=== PATIENT | male | born 1960 | race Caucasian/White ===

== ENCOUNTER 2017-09-17 02:09 | Observation (INO) | payer SELFPAY ==
[2017-09-17] MEDS ORDERED: ASPIRIN 81 MG TABLET, CHEWABLE PO ONE (02:12)
--- NOTE | 2017-09-17 02:20 | ER Document Report ---
ED General - General Mode of Arrival: Medic Information source: Patient <TOM GARCIA - Last Filed: 09/17/17 03:34> <TAL AGUIRRE - Last Filed: 09/17/17 06:16> - General Stated Complaint: CHEST PAIN Time Seen by Provider: 09/17/17 02:12 Notes: Patient is a 56 year old male with a history of MN presents to the emergency department via EMS complaining of chest pain onset 1 hour prior to arrival. Patient states he was woken from his sleep due to his chest pain. He further states that he believes he is having a heart attack because his symptoms are similar to his previous MN 15 years ago. He states his pain starts in his chest and radiates down both of his arms with a severity of 2/5. Patient states he has had one drink prior to arrival to the emergency department. Patient denies nausea, vomiting, shortness of breath or headaches. EMS gave Aspirin and Nitroglycerin on the way to the emergency department. Patient states these medications did not relieve his pain. (JOSETOM) - Related Data Allergies/Adverse Reactions: No Known Allergies Allergy (Unverified 09/17/17 03:28) Past Medical History - General Information source: Patient, Emergency Med Personnel - Social History Smoking Status: Current Every Day Smoker Cigarette use (# per day): Yes Frequency of alcohol use: Rare Drug Abuse: Marijuana Family History: Other - [place] <TOM GARCIA - Last Filed: 09/17/17 03:34> Review of Systems - Review of Systems Constitutional: No symptoms reported EENT: No symptoms reported Cardiovascular: See HPI, Chest pain Respiratory: No symptoms reported Gastrointestinal: No symptoms reported Genitourinary: No symptoms reported Male Genitourinary: No symptoms reported Musculoskeletal: See HPI Skin: No symptoms reported Hematologic/Lymphatic: No symptoms reported Neurological/Psychological: No symptoms reported -: Yes All other systems reviewed and negative <TOM GARCIA - Last Filed: 09/17/17 03:34> Physical Exam <JOSE,OLIVEWES - Last Filed: 09/17/17 03:34> <TAL AGUIRRE - Last Filed: 09/17/17 06:16> - Vital signs Vitals: Pulse Ox 96 09/17/17 02:12 - Notes Notes: GENERAL: Alert, interacts well. No acute distress. HEAD: Normocephalic, atraumatic. EYES: Pupils equal, round, and reactive to light. Extraocular movements intact. ENT: Oral mucosa moist, tongue midline. NECK: Full range of motion. Supple. Trachea midline. LUNGS: Clear to auscultation bilaterally, no wheezes, rales, or rhonchi. No respiratory distress. HEART: Regular rate and rhythm. No murmurs, gallops, or rubs. ABDOMEN: Soft, non-tender. Non-distended. Bowel sounds present in all 4 quadrants. EXTREMITIES: Moves all 4 extremities spontaneously. No edema, radial, and dorsalis pedis pulses 2/4 bilaterally. No cyanosis. NEUROLOGICAL: Alert and oriented x3. Normal speech. PSYCH: Normal affect, normal mood. SKIN: Warm, dry, and normal turgor. No rashes or lesions noted. (TOM GARCIA) Course - Laboratory Result Diagrams: 09/17/17 02:14 09/17/17 02:14 <TOM GARCIA - Last Filed: 09/17/17 03:34> - Laboratory Result Diagrams: 09/17/17 02:14 09/17/17 02:14 <TAL AGUIRRE - Last Filed: 09/17/17 06:16> - Re-evaluation Re-evalutation: 09/17/17 03:24 CBC shows mild leukocytosis 11.8, CMP grossly unremarkable, cardiac enzymes initially negative with a troponin of 0.015, EKG is nonischemic 2, chest x-ray does not show any acute process per my interpretation but I am awaiting radiology confirmation. Patient continues to have intermittent left elbow pain but no chest pain. Patient will have nitroglycerin paste placed on the chest, Lovenox will be started and patient will be placed on Dr. Dobson's service for observation. (TAL AGUIRRE) - Vital Signs Vital signs: Temp Pulse Resp BP Pulse Ox 96 09/17/17 02:12 - Laboratory Laboratory results interpreted by me: 09/17/17 09/17/17 02:14 02:14 WBC 11.8 H Glucose 133 H Total Bilirubin 0.1 L - EKG Interpretation by Me Additional EKG results interpreted by me: 09/17/17 03:25 Initial EKG shows sinus rhythm rate of 69 normal axis, normal pulse, no ST segment elevations or depressions, there are biphasic T waves noted in aVL and lead III per my interpretation. Repeat EKG shows sinus rhythm at a rate of 64, normal axis, normal intervals, no ST segment elevations or depressions, there are biphasic T waves in V3 and now newly biphasic T waves in V2, continued biphasic T waves in aVL, again no evidence of a STEMI per my interpretation. (TAL AGUIRRE) Discharge <TOM GARCIA - Last Filed: 09/17/17 03:34> - Discharge Admitting Provider: Hospitalist - [facility] Admitted: Telemetry <TAL AGUIRRE - Last Filed: 09/17/17 06:16> - Discharge Clinical Impression: Chest pain, rule out acute myocardial infarction Condition: Fair Disposition: ADMITTED OBSERVATION Scribe Attestation: 09/17/17 06:16 I personally performed the services described in the documentation, reviewed and edited the documentation which was dictated to the scribe in my presence, and it accurately records my words and actions. (TAL AGUIRRE) Scribe Documentation - Scribe Written by Scribe:: Cecilio Hernandez, 09/17/2017 02:42 acting as scribe for :: Bing <TOM GARCIA - Last Filed: 09/17/17 03:34>
[2017-09-17 02:25] LABS: ABSOLUTE BASOPHILS # (AUTO) 0.1 10^3/uL (0.0-0.2); ABSOLUTE EOSINOPHILS # (AUTO) 0.1 10^3/uL (0.0-0.6); ABSOLUTE LYMPHOCYTES (AUTO) 3.3 10^3/uL (0.5-4.7); ABSOLUTE MONOCYTES (AUTO) 0.9 10^3/uL (0.1-1.4); ABSOLUTE NEUT (AUTO) 7.4 10^3/uL (1.7-8.2); EOSINOPHILS % (AUTO) 0.9 % (0-6); HEMATOCRIT 43.7 % (37.9-51.0); HEMOGLOBIN 14.9 g/dL (13.5-17.0); LYMPHOCYTES % (AUTO) 27.9 % (13-45); MEAN CORPUSCULAR HEMOGLOBIN 30.5 pg (27.0-33.4); MEAN CORPUSCULAR HGB CONC 34.1 g/dL (32.0-36.0); MEAN CORPUSCULAR VOLUME 89 fl (80-97); MONOCYTES % (AUTO) 7.5 % (3-13); PLATELET COUNT 240 10^3/uL (150-450); RED BLOOD COUNT 4.88 10^6/uL (4.35-5.55); RED CELL DISTRIBUTION WIDTH 13.9 % (11.5-14.0); SEGMENTED NEUTROPHILS % (AUTO) 62.7 % (42-78); TOTAL CELLS COUNTED % (AUTO) 100 %; WHITE BLOOD COUNT 11.8 10^3/uL (4.0-10.5)
[2017-09-17 02:36] LABS: ALANINE AMINOTRANSFERASE 26 U/L (21-72); ALKALINE PHOSPHATASE 75 U/L (38-126); ANION GAP 12 (5-19); ASPARTATE AMINO TRANSFERASE 18 U/L (17-59); BILIRUBIN,DIRECT 0.1 mg/dL (0.0-0.4); BILIRUBIN,TOTAL 0.1 mg/dL (0.2-1.3); BLOOD UREA NITROGEN 15 mg/dL (7-20); CALCIUM 9.2 mg/dL (8.4-10.2); CARBON DIOXIDE 25 mmol/L (22-30); CHLORIDE 104 mmol/L (98-107); CREATINE KINASE 59 U/L (55-170); GLUCOSE 133 mg/dL (75-110); POTASSIUM 4.5 mmol/L (3.6-5.0); SODIUM 140.6 mmol/L (137-145); TOTAL PROTEIN 6.8 g/dL (6.3-8.2)
[2017-09-17 02:47] LABS: CREATINE KINASE MB 0.5 ng/mL (<4.55); TROPONIN I 0.015 ng/mL
[2017-09-17] MEDS ORDERED: NITROGLYCERIN 2% OINTMENT 1 GM PACKET TP ONE (03:22)
[2017-09-17] MEDS ORDERED: ENOXAPARIN SODIUM INJ 80 MG/0.8 ML DISP.SYRIN SUBCUT ONE (03:22)
[2017-09-17] MEDS ORDERED: ONDANSETRON HCL INJ/PF 4 MG/2 ML SDV IV PRN (03:42)
[2017-09-17] MEDS ORDERED: OXYCODONE-ACETAMINOPHEN 5-325 MG TABLET PO PRN (03:42)
--- NOTE | 2017-09-17 03:43 | RADIOLOGY REPORT (SQ) ---
EXAM DESCRIPTION: Single view of the chest CLINICAL HISTORY: chest pain COMPARISON: None. FINDINGS: Single frontal view of the chest. The cardiomediastinal silhouette has normal size and contour. No consolidation, pneumothorax, or pleural effusion. Left apical bulla. Leads overlie the chest. No displaced rib fractures identified. Upper abdominal soft tissues are unremarkable. IMPRESSION: 1. No acute pulmonary process identified.
--- NOTE | 2017-09-17 03:53 | PDOC H&P ---
History of Present Illness History of Present Illness: NEREIDA GUZMAN is a 56 year old male patient presents with chief complaint of chest pain. Patient reports that he woke up at about 12:30 AM this morning with chest pain described as pressure-like localized to his precordium radiating to both hands. The chest pain is not reproducible and is not associated with deep breathing. Patient denied fever, cough, palpitation, diaphoresis, nausea, vomiting or diarrhea. He does not have any urinary complaints no headache or dizziness. Of note patient had a heart attack 15 years ago and he had PCI and stent placement. Patient takes only aspirin nausea or medication. He denies also other chronic illness. His father of heart attack at the age of 67. Past Medical History Cardiac Medical History: Reports: Coronary Artery Disease, Myocardial Infarction Past Surgical History Past Surgical History: Reports: Cardiac Catheterization - stents Social History Smoking Status: Current Every Day Smoker - Advance Directive Resuscitation Status: Full Code Family History Family History: Other - MS Parental Family History Reviewed: Yes Children Family History Reviewed: Yes Sibling(s) Family History Reviewed.: Yes Medication/Allergy Allergies/Adverse Reactions: No Known Allergies Allergy (Unverified 09/17/17 03:28) Review of Systems Cardiovascular: PRESENT: as per HPI Respiratory: PRESENT: as per HPI Gastrointestinal: PRESENT: as per HPI Neurological: PRESENT: as per HPI Psychiatric: PRESENT: as per HPI Physical Exam Vital Signs: Temp Pulse Resp BP Pulse Ox 96 09/17/17 02:12 General appearance: PRESENT: no acute distress Head exam: PRESENT: atraumatic, normocephalic Respiratory exam: PRESENT: clear to auscultation james. ABSENT: rales, rhonchi, wheezes Cardiovascular exam: PRESENT: RRR. ABSENT: diastolic murmur, rubs, systolic murmur GI/Abdominal exam: PRESENT: normal bowel sounds, soft. ABSENT: distended, guarding, mass, organolmegaly, rebound, tenderness Musculoskeletal exam: ABSENT: ambulatory, deformity, dislocation, full ROM, normal inspection, tenderness, other Neurological exam: PRESENT: alert, awake, oriented to person, oriented to place , oriented to time, oriented to situation, CN II-XII grossly intact. ABSENT: motor sensory deficit Results Laboratory Results: 09/17/17 02:14 09/17/17 02:14 09/17/17 09/17/17 02:14 02:14 WBC 11.8 H RBC 4.88 Hgb 14.9 Hct 43.7 MCV 89 MCH 30.5 MCHC 34.1 RDW 13.9 Plt Count 240 Seg Neutrophils % 62.7 Lymphocytes % 27.9 Monocytes % 7.5 Eosinophils % 0.9 Basophils % 1.0 Absolute Neutrophils 7.4 Absolute Lymphocytes 3.3 Absolute Monocytes 0.9 Absolute Eosinophils 0.1 Absolute Basophils 0.1 Sodium 140.6 Potassium 4.5 Chloride 104 Carbon Dioxide 25 Anion Gap 12 BUN 15 Creatinine 0.76 Est GFR ( Amer) > 60 Est GFR (Non-Af Amer) > 60 Glucose 133 H Calcium 9.2 Total Bilirubin 0.1 L AST 18 ALT 26 Alkaline Phosphatase 75 Total Protein 6.8 Albumin 4.0 09/17/17 09/17/17 02:14 02:14 Creatine Kinase 59 CK-MB (CK-2) 0.50 Troponin I 0.015 Impressions: Chest X-Ray 09/17/17 02:12 IMPRESSION: 1. No acute pulmonary process identified. Assessment & Plan - Diagnosis (1) Chest pain, rule out acute myocardial infarction Is this a current diagnosis for this admission?: Yes Plan: We will cycle his cardiac enzymes and exercise cardiac stress test in the morning. Patient takes only aspirin and I would like for him Coreg and lisinopril. - Time Critical Time spent with patient: 25-34 minutes
[2017-09-17] MEDS ORDERED: CARVEDILOL 3.125 MG TABLET PO ONE (04:00)
[2017-09-17] MEDS ORDERED: LISINOPRIL 5 MG TABLET PO SCH (04:00)
[2017-09-17] MEDS ORDERED: LANSOPRAZOLE 30 MG TAB.RAP.DR PO SCH (06:00)
[2017-09-17] MEDS: ACETAMINOPHEN 325 MG TABLET PO PRN ×2 (06:22→13:50)
[2017-09-17] MEDS ORDERED: LISINOPRIL 5 MG TABLET PO ONE ×2 (06:45→10:45)
--- NOTE | 2017-09-17 06:53 | EKG REPORT ---
SEVERITY:- ABNORMAL ECG - SINUS RHYTHM ABNRM R PROG, CONSIDER ASMI OR LEAD PLACEMENT BIPHASIC T WAVES ANTERIO LEADS, CLINICAL CORRRELATION NEEDED. : Confirmed by: Pierce Dobbs MD 17-Sep-2017 06:52:53
--- NOTE | 2017-09-17 06:54 | EKG REPORT ---
SEVERITY:- ABNORMAL ECG - SINUS RHYTHM BIPHASIC T WAVES ANTERIO LEADS, CLINICAL CORRRELATION NEEDED. : Confirmed by: Pierce Dobbs MD 17-Sep-2017 06:53:34
[2017-09-17 07:00] LABS: CHOLESTEROL 197.24 mg/dL (0-200); TRIGLYCERIDES 115 mg/dL (<150)
[2017-09-17 07:11] LABS: DIRECT LDL 147 mg/dL (<100)
[2017-09-17] MEDS ORDERED: ASPIRIN 325 MG TABLET, ENT COATED PO SCH (10:00)
[2017-09-17] MEDS ORDERED: ENOXAPARIN SODIUM INJ 40 MG/0.4 ML DISP.SYRIN SUBCUT SCH (10:00)
[2017-09-17] MEDS ORDERED: ATORVASTATIN CALCIUM 40 MG TABLET PO ONE (10:45)
--- NOTE | 2017-09-17 12:56 | EKG REPORT ---
SEVERITY:- ABNORMAL ECG - SINUS RHYTHM NONSPECIFIC T INVERSION ANTERIOR LEADS, CLINICAL CORRELATION NEEDED. : Confirmed by: Pierce Dobbs MD 17-Sep-2017 12:55:44
[2017-09-17] MEDS: NITROGLYCERIN 2% OINTMENT 1 GM PACKET TP SCH ×2 (13:45→18:33)
--- NOTE | 2017-09-17 14:04 | CONSULTATION REPORT E ---
Consultation Report NAME: NEREIDA GUZMAN : 1960 AGE: 56Y DATE: 09/17/2017 315 A TO: TASH MILLER M.D. FROM: Elida NORMAN, Requesting Physician REASON FOR CONSULTATION: The patient had chest pressure, abnormal EKG, and elevated troponin I consistent with a non-ST elevation DC. HISTORY: The patient is a pleasant 56-year-old male with known prior history of coronary artery disease, old myocardial infarction, who states he was doing well until he woke up this morning from sleep around 12:30 a.m. with significant chest pressure with radiation to both arms. The chest pressure did increase with exertion, but there was no shortness of breath, palpitations, fever, chills, or rigors. The pressure did not increase with deep breathing. The patient denies any cough. The patient states that he has not had these symptoms since his heart attack and stent about 15 years ago. He denies PND, orthopnea. There are no palpitations, syncope, or near syncope. There is no pedal edema. The patient states that the chest pressure lasted for about 1 to 1-1/2 hours. At present, the patient is without any symptoms. PAST MEDICAL HISTORY: Positive for: 1. History of coronary artery disease. 2. History of myocardial infarction 15 years ago at which time he had a stent placed. He does not know the vessel that the stent was placed, but he states it is not the main artery, but one of the branches. He has been active without any symptoms of angina until this morning where he woke up with chest pressure. He denies hypertension. He denies history of asthma, COPD, or sleep apnea. There is no history of TIA or CVA. There is no history of pulmonary embolism. There are no seizures, headaches, or migraines. His cholesterol status is not known, but this admission, his LDL cholesterol is elevated at 147. He has no history of diabetes mellitus or thyroid disease. PAST SURGICAL HISTORY: Positive for cardiac catheterization and stent placement about 15 years ago after a myocardial infarction. FAMILY HISTORY: Father had myocardial infarction and at the age of 62 with first heart attack. ALLERGIES: The patient has no known allergies. MEDICATIONS: At home, he is taking aspirin 81 mg p.o. daily. He is on: 1. Acetaminophen 650 mg p.o. q. 4 hours. 2. Aspirin 325 mg now and p.o. daily. 3. Coreg 3.125 mg p.o. now x1 and q. 12 hours. 4. Lovenox received around 4 a.m. at 80 mg subcutaneously x1 dose. 5. He did receive lisinopril 2.5 mg p.o. twice. 6. Nitroglycerin 2% ointment 1 g topically x1. 7. Zofran 4 mg IV q. 8 hours p.r.n. 8. Oxycodone, hydrochloride and acetaminophen 1 tablet p.o. q. 6 hours p.r.n. REVIEW OF SYSTEMS: CONSTITUTIONAL: Denies any fevers, chills, or rigors. HEAD: Denies headaches or head injury. EYES: No history of amblyopia or diplopia. No history of amaurosis fugax. EARS: No history of hearing loss. No history of tinnitus. No history of recurrent ear infections. NOSE: No history of hay fever. No history of nasal polyps. No history of nosebleeds. MOUTH: No altered taste sensation. No ulcers in the mouth. No bleeding from the gums. THROAT: No odynophagia or dysphagia. No recurrent sore throats. SKIN: No pruritus. No eczema. No history of skin cancer. No history of yellowish discoloration of the skin. No rashes. NECK: No painless or painful swelling of the neck. No neck stiffness. LUNGS: No history of asthma or COPD. No history of wheezing. No history of cough or sputum production. No history of sleep apnea. No history of pulmonary embolism. No history of hemoptysis. No history of wheezing. Note that the patient is a smoker. CARDIAC: No history of hypertension. No history of congestive heart failure. No history of chronic arrhythmia. No history of congenital heart disease or rheumatic fever. History of coronary artery disease. History of DC 15 years ago at which time he had a stent placed in an unknown coronary artery. Since then, he has not had anginal symptoms. No PND, orthopnea. No leg edema. No palpitations. No syncope or near syncope. GASTROINTESTINAL: No history of GERD. No history of hepatitis. No history of fatty food intolerance. No history of cirrhosis. No history of recurrent abdominal pains or abdominal pains at any time. No history of GI bleed. No history of altered bowel movements. No fatty food intolerance. No history of hepatitis. ENDOCRINE: No history of diabetes mellitus. No history of thyroid disease. No history of polydipsia or polyuria. No history of heat or cold intolerance. MUSCULOSKELETAL: Denies arthritis or collagen vascular disease. RENAL: No history of chronic kidney disease. No symptoms of UTI. No history of hematuria, pyuria, or dysuria. No symptoms of enlarged prostate. METABOLIC: Denies knowledge of hyperlipidemia, but his LDL levels are elevated at 147. He has no history of gout. No history of obesity. CENTRAL NERVOUS SYSTEM: No history of TIA or CVA. No history of headaches, migraines, or seizures. No gait imbalance. PSYCHIATRIC: No history of anxiety or depression. No history of suicidal ideation. VASCULAR: No history of cough or buttock claudication. No history of calf or buttock claudication. No DVT. HEMATOLOGICAL: No history of bleeding diathesis. No history of clotting disorders. SOCIAL HISTORY: The patient is a smoker since many years and there is no history of ETOH abuse or street drug abuse. DISPOSITION: The patient is a full code. His is the surrogate healthcare decision maker. PHYSICAL EXAMINATION: VITAL SIGNS: The patient is afebrile with a temperature of 98.3 degrees Fahrenheit, pulse is 65 beats per minute, blood pressure is 122/70, respirations are 18 per minute, O2 saturations are 99% on room air. HEAD: Atraumatic, normocephalic. EYES: Pupils are equal, round, regular, reactive to light and accommodation. Extraocular movements are normal. There is no conjunctival pallor. There is no scleral icterus. EARS: Tympanic membranes are intact. External auditory canals are clear. NOSE: There is no deviated nasal septum. There is no inflammation of the nasal mucous membrane. There are no nasal polyps. MOUTH: Mucous membranes of the mouth are moist. Tongue is moist. There are no ulcers. There is no bleeding from the gums. THROAT: There is no redness of the oropharynx. There are no exudates. NECK: Supple. There is no JVD. Carotids are equal. There is no bruit. There is no lymphadenopathy. There is no goiter. Trachea is central. LUNGS: Clear to auscultation and percussion without any rhonchi, rales, or wheezing. There is no chest wall tenderness. HEART: S1 and S2 are heard. There is no S3 gallop. There is no S4 gallop. There is a systolic murmur in the left sternal border of the apex. There is no rub. ABDOMEN: Soft, nontender. There is no hepatosplenomegaly. Bowel sounds are well heard. There are no tender areas or masses. EXTREMITIES: Femorals are well heard. Leg pulses are well heard. There are no femoral bruits. There is no cyanosis or clubbing. There is no pedal edema. There is no calf tenderness. There is no DVT or cellulitis. CENTRAL NERVOUS SYSTEM: The patient is conscious, awake, alert, oriented x3 with no focal deficits. PSYCHIATRIC: The patient's judgment and insight are intact. His affect is normal. IMAGING: His chest x-ray shows no acute process. Chest x-ray has been reviewed by me. His EKG has been reviewed and interpreted by me. It shows sinus rhythm with biphasic T-waves in leads V2 and V3, suspicious for ischemia. The patient's subsequent EKG shows sinus rhythm with T-inversion in leads V1-V3 suspicious for *------*. LABORATORY: The patient's sodium is 140.6, potassium 4.5, chloride 104, CO2 is 25. The patient's BUN is 15, creatinine 0.76. GFR is greater than 60. Glucose is 133, calcium is 9.2, total bilirubin is 0.1, which is low. The rest of the liver function tests are normal. His initial troponin I was 0.015, subsequently francis to 0.462, which is abnormal. His albumin is 4.0, total protein 6.8. His HDL cholesterol is borderline at 40, his LDL cholesterol is elevated at 147, his triglycerides are normal at 115, his total cholesterol is 197.24. His VLDL cholesterol is 23. The patient's white count is 11,800, hemoglobin 14.9, hematocrit is 43.7, platelet count is 240,000. IMPRESSION: 1. Non-ST elevation DC in a patient with chest pressure, at present, stable. 2. Coronary artery disease, history of old myocardial infarction, and history of stent placement in an unknown coronary artery. 3. Hyperlipidemia. 4. Tobacco abuse. RECOMMENDATIONS: Would continue the patient's aspirin starting now. Will continue the patient's Lovenox at 70 mg subcutaneously q. 12 hours, starting 12 hours after the 80 mg he received subcutaneously at 4 a.m. Would also start the patient on Lipitor 40 mg p.o. now and 40 mg daily at bedtime. Continue the patient on Nitropaste at 0.5 inch q. 6 hours. Continue the patient's aspirin. Would place the patient on metoprolol at 12.5 mg p.o. q. 12 hours and increase as tolerated and would stop the patient's Coreg. All of this discussed with the patient. Also, it is recommended that the patient be transferred to [facility] for cardiac catheterization. In view of the patient's prior history of DC, history of abnormal EKG, and elevated cardiac biomarkers and the patient's young age. Also, the patient has been counseled to stop smoking, tobacco cessation counseling has been given. NOTE: The patient was discussed with the hospitalist, Dr. Plaza. *------* and she is ready for transfer to [facility] where the patient desires to be transferred. The patient desires to follow up with me after the procedure. My telephone number and the patient is to contact me to set up an appointment. NOTE: Medical decision making is of highly complex nature. Sixty minutes spent on the patient. The patient was seen at 9:30 a.m. After 60 minutes seeing the patient, more than 50% was spent in direct patient care. Also, the case with the patient. The risks and benefits of cardiac catheterization have been discussed with the patient in detail. Also, I discussed the case with the attending physician on the case and the nurse taking care of the patient. Will follow with you. DICTATING PHYSICIAN: TASH MILLER M.D. [id number] PHY#: [id number] ID: [id number] JOB#: [id number] ACCT: [id number] cc:TASH MILLER M.D. >
[2017-09-17] MEDS ORDERED: ENOXAPARIN SODIUM INJ 80 MG/0.8 ML DISP.SYRIN SUBCUT SCH (16:00)
--- NOTE | 2017-09-17 18:49 | PDOC DISCHARGE SUMMARY ---
General - Admit/Disc Date/PCP Admission Date/Primary Care Provider: 09/17/17 03:46 Discharge Date: 09/17/17 - Discharge Diagnosis (1) NSTEMI, initial episode of care Is this a current diagnosis for this admission?: Yes (2) CAD (coronary artery disease) Is this a current diagnosis for this admission?: Yes Summary: s/p Stent placement 15 years ago (3) Tobacco abuse Is this a current diagnosis for this admission?: Yes - Additional Information Resuscitation Status: Full Code Discharge Diet: Cardiac Discharge Activity: Bedrest Home Medications: Aspirin [Ecotrin 325 mg EC Tablet] 325 mg PO DAILY tabec 09/17/17 Enoxaparin Sodium [Lovenox Inj 80 mg/0.8 ml Disp.syrin] 70 mg SUBCUT Q12@0400, 1600 disp.syrin 09/17/17 Lansoprazole [Prevacid 30 mg Odt Tablet] 30 mg PO Q6AM tab.rap.dr 09/17/17 Lisinopril [Prinivil 5 mg Tablet] 2.5 mg PO DAILY tablet 09/17/17 Metoprolol Tartrate [Lopressor 25 mg Tablet] 25 mg PO Q12 tablet 09/17/17 Nitroglycerin [Nitrol 2% Ointment 1Gm Packet] 0.5 gm TP Q6 oint..gm. 09/17/17 History of Present Illness Patient complains of: Chest pain with radiation down upper extremity x 1day History of Present Illness: NEREIDA GUZMAN is a 56 year old male patient presents with chief complaint of chest pain. Patient reports that he woke up at about 12:30 AM this morning with chest pain described as pressure-like localized to his precordium radiating to both hands. The chest pain is not reproducible and is not associated with deep breathing. Patient denied fever, cough, palpitation, diaphoresis, nausea, vomiting or diarrhea. He does not have any urinary complaints no headache or dizziness. Of note patient had a heart attack 15 years ago and he had PCI and stent placement. Patient takes only aspirin nausea or medication. He denies also other chronic illness. His father of heart attack at the age of 67. Hospital Course Hospital Course: This patient was admitted early this morning with complaints of chest pain localized to his precordium and radiating to both hands. He was admitted to the telemetry floor. His initial troponin was 0.15 which then increased to 0.462 and the last one at 6:00pm was 9.26. Patient currently denies any chest pain and he has been hemodynamically stable throughout the day. Seen by the hook loader on-call. Patient does have a history of coronary artery disease with stent placement about 15 years ago. He has since been on aspirin. With his increasing troponin he is diagnosed with an acute non-ST elevation myocardial infarction and is being transferred to [facility] for further management. EKG shows T-wave inversion in anterior leads as well as biphasic T waves and poor R-wave progression. He received full strength Lovenox, aspirin, lisinopril as well as metoprolol during his short stay in this hospital. Physical Exam Vital Signs: Temp Pulse Resp BP Pulse Ox 97.6 F 67 14 131/80 H 97 09/17/17 15:06 09/17/17 15:06 09/17/17 15:06 09/17/17 15:06 09/17/17 15:06 Intake & Output 09/16/17 09/17/17 09/18/17 06:59 06:59 06:59 Intake Total 50 Balance 50 Weight 71.4 kg General appearance: PRESENT: no acute distress, well-developed Head exam: PRESENT: atraumatic, normocephalic Eye exam: PRESENT: conjunctiva pink, EOMI, PERRLA. ABSENT: scleral icterus Ear exam: PRESENT: normal external ear exam Mouth exam: PRESENT: moist, tongue midline Neck exam: ABSENT: carotid bruit, JVD, lymphadenopathy, thyromegaly Respiratory exam: PRESENT: clear to auscultation james. ABSENT: rales, rhonchi, wheezes Cardiovascular exam: PRESENT: RRR. ABSENT: diastolic murmur, rubs, systolic murmur Pulses: PRESENT: normal dorsalis pedis pul Vascular exam: PRESENT: normal capillary refill GI/Abdominal exam: PRESENT: normal bowel sounds, soft. ABSENT: distended, guarding, mass, organolmegaly, rebound, tenderness Rectal exam: PRESENT: deferred Extremities exam: PRESENT: full ROM. ABSENT: calf tenderness, clubbing, pedal edema Neurological exam: PRESENT: alert, awake, oriented to person, oriented to place , oriented to time, oriented to situation, CN II-XII grossly intact. ABSENT: motor sensory deficit Psychiatric exam: PRESENT: appropriate affect, normal mood. ABSENT: homicidal ideation, suicidal ideation Skin exam: PRESENT: dry, intact, warm. ABSENT: cyanosis, rash Results Laboratory Results: 09/17/17 06:33 Triglycerides 115 Cholesterol 197.24 LDL Cholesterol Direct 147 H VLDL Cholesterol 23.0 HDL Cholesterol 40 09/17/17 09/17/17 06:33 16:51 Troponin I 0.462 9.260 Impressions: Chest X-Ray 09/17/17 02:12 IMPRESSION: 1. No acute pulmonary process identified. Qualifiers - * PATIENT BEING DISCHARGED WITH ANY OF THE FOLLOWING DIAGNOSIS: OR OR Pt being discharged on Aspirin therapy?: Yes OR Pt being discharged on Statins?: Yes OR Pt discharged ACEI/ARBS?: Yes Plan Discharge Plan: Transfer to the hospitalist service at [facility]. Dr. Hughes accepted this patient after discussion with him Time Spent: Greater than 30 Minutes - Including coordination with [facility]
[2017-09-17 19:53] VITALS: BP 122/63
[2017-09-17] MEDS ORDERED: METOPROLOL TARTRATE 25 MG TABLET PO SCH (22:00)
[2017-09-17] MEDS ORDERED: CARVEDILOL 3.125 MG TABLET PO SCH (22:00)
--- NOTE | 2017-09-18 07:37 | EKG REPORT ---
SEVERITY:- ABNORMAL ECG - SINUS RHYTHM ABNORMAL T, CONSIDER ISCHEMIA, LATERAL LEADS : Confirmed by: Pierce Dobbs MD 18-Sep-2017 07:36:30
[2017-09-18] MEDS ORDERED: LISINOPRIL 5 MG TABLET PO SCH (10:00)
== END 2017-09-17 19:54 | disposition short-term general hospital (02) ==
LOC: ER 02:09 → EH 03:46 → 3W 07:14
PROVIDERS: ADMIT Internal Medicine; ATTEND Internal Medicine
DX: I21.4 Non-ST elevation (NSTEMI) myocardial infarction (principal); I25.10 Atherosclerotic heart disease of native coronary artery without angina pectoris; I25.2 Old myocardial infarction; F17.200 Nicotine dependence, unspecified, uncomplicated; R01.1 Cardiac murmur, unspecified; E78.5 Hyperlipidemia, unspecified; F17.210 Nicotine dependence, cigarettes, uncomplicated; F12.10 Cannabis abuse, uncomplicated; D72.829 Elevated white blood cell count, unspecified; M25.522 Pain in left elbow; Z95.5 Presence of coronary angioplasty implant and graft; Z79.82 Long term (current) use of aspirin; Z79.899 Other long term (current) drug therapy; Z82.49 Family history of ischemic heart disease and other diseases of the circulatory system
CPT/HCPCS: 93005 ×2; 99285; 96372; 36415; 82553; 82550; 85025; 80053; 84484; 80061; 71045; 93010; J3490; J1650